=== PATIENT | male | born 1960 | race Caucasian/White ===

== ENCOUNTER 2017-08-31 03:41 | Emergency (ER) | payer BC, OTHER ==
[2017-08-31] MEDS: KETOROLAC 60 MG INJ IM (04:17)
== END 2017-08-31 04:23 | disposition home or self-care (01) ==
LOC: E/R 03:41
DX: M54.41 Lumbago with sciatica, right side (principal); I10 Essential (primary) hypertension; E11.9 Type 2 diabetes mellitus without complications
CPT/HCPCS: 96372; 99284-25; J1885